=== PATIENT | female | born 1995 | race Caucasian/White ===

== ENCOUNTER 2021-08-08 18:20 | Emergency (ER) | payer OTHER ==
[~2021-08-08] VITALS: Ht 172.7 cm; Wt 68.0 kg
[2021-08-08] MEDS ORDERED: HYDROCODON-ACE1 EA10 PO (22:09)
[2021-08-08] MEDS ORDERED: ONDANSETRON ODT8 MG PO (22:09)
== END 2021-08-08 22:25 | disposition home or self-care (01) ==
LOC: ED 18:20
DX: A08.4 Viral intestinal infection, unspecified (principal); Z20.822 Contact with and (suspected) exposure to COVID-19
CPT/HCPCS: 36415; 80053; 81001; 84703; 85025; 96374; 99284-25; A9270; C9803; J1885; J7030; U0003